=== PATIENT | male | born 1995 | race African-American/Black ===

== ENCOUNTER 2025-01-28 08:13 | Emergency (ER) | payer OTHER ==
[~2025-01-28] VITALS: Ht 175.3 cm; Wt 81.8 kg
[2025-01-28 09:36] VITALS: BP 140/84; PULSE 96; RESP 16; TEMP 97.9; O2SAT 100
== END 2025-01-28 09:44 ==
LOC: EMS 08:16
DX: Z02.89 Encounter for other administrative examinations (principal); V49.40XA Driver injured in collision with unspecified motor vehicles in traffic accident, initial encounter; Y93.89 Activity, other specified; Y92.410 Unspecified street and highway as the place of occurrence of the external cause; Y99.8 Other external cause status
CPT/HCPCS: 99283; Z7502